=== PATIENT | male | born 1995 | race Caucasian/White ===

== ENCOUNTER 2018-07-24 10:30 | Emergency (ER) | payer BC, OTHER, SELFPAY ==
[2018-07-24] MEDS ORDERED: KETOROLAC 30 MG/ML VIAL IM ONE (10:58)
[2018-07-24] MEDS ORDERED: ORPHENADRINE CITRATE 60MG/2ML VIAL IM ONE (11:10)
--- NOTE | 2018-07-24 11:11 | Emergency Department Record ---
History of Present Illness - General Chief complaint: Pain Stated complaint: R SHOULDER PAIN Time Seen by Provider: 07/24/18 10:53 Source: Patient Mode of Arrival: Ambulatory Limitations: No limitations - History of Present Illness Initial comments: pt has been having pain in his r shoulder for a few days. he does a lot of heavy lifting on his job Complaint: Extremity pain Onset/Timin -: Days(s) Location: Right, Shoulder Severity scale (1-10): >10 Consistency: Constant Improves with: Rest Worsens with: Exertion, Palpation - Related Data Previous Rx's Medication Instructions Recorded Cyclobenzaprine HCl [Flexeril] 10 mg PO TID #14 tablet 07/24/18 Hydrocodone/Acetaminophen [[place] 1 each PO Q6HR #7 tablet 07/24/18 5-325 Tablet] Ibuprofen [Motrin] 800 mg PO Q8H PRN #20 tab 07/24/18 Allergies Allergy/AdvReac Type Severity Reaction Status Date / Time cefaclor [From Ceclor] Allergy RASH Verified 07/24/18 10:44 cephalexin monohydrate Allergy RASH Verified 07/24/18 10:44 [From Keflex] Travel Screening - Travel/Exposure Within Last 30 Days Have you traveled within the last 30 days?: No - Travel/Exposure Within Last Year Have you traveled outside the [place] in the last year?: No - Additonal Travel Details Have you been exposed to anyone with a communicable illness?: No - Travel Symptoms Symptom Screening: None Review of Systems Reviewed: No additional complaints except as noted below Constitutional: Reports: As per HPI. Denies: Chills, Fever, Malaise, Night sweats, Weakness, Weight change Eyes: Reports: As per HPI. Denies: Eye discharge, Eye pain, Photophobia, Vision change ENT: Reports: As per HPI. Denies: Congestion, Dental pain, Ear pain, Epistaxis , Hearing loss, Throat pain Respiratory: Reports: As per HPI. Denies: Cough, Dyspnea, Hemoptysis, Stridor, Wheezes Cardiovascular: Reports: As per HPI. Denies: Arrhythmia, Chest pain, Dyspnea on exertion, Edema, Murmurs, Orthopnea, Palpitations, Paroxysmal nocturnal dyspnea, Rheumatic Fever, Syncope Endocrine: Reports: As per HPI. Denies: Fatigue, Heat or cold intolerance, Polydipsia, Polyuria Gastrointestinal: Reports: As per HPI. Denies: Abdominal pain, Constipation, Diarrhea, Hematemesis, Hematochezia, Melena, Nausea, Vomiting Genitourinary: Reports: As per HPI. Denies: Dysuria, Frequency, Hematuria, Incontinence, Retention, Testicular pain, Testicular mass, Urgency Musculoskeletal: Reports: As per HPI. Denies: Arthralgia, Back pain, Gout, Joint swelling, Myalgia, Neck pain Skin: Reports: As per HPI. Denies: Bruising, Change in color, Change in hair/ nails, Lesions, Pruritus, Rash Neurological: Reports: As per HPI. Denies: Abnormal gait, Confusion, Headache, Numbness, Paresthesias, Seizure, Tingling, Tremors, Vertigo, Weakness Psychiatric: Reports: As per HPI. Denies: Anxiety, Auditory hallucinations, Depression, Homicidal thoughts, Suicidal thoughts, Visual hallucinations Hematological/Lymphatic: Reports: As per HPI. Denies: Anemia, Blood Clots, Easy bleeding, Easy bruising, Swollen glands Past Medical History - SOCIAL HISTORY Smoking Status: Never smoker Alcohol Use: None Drug Use: None - RESPIRATORY Hx Respiratory Disorders: No - CARDIOVASCULAR Hx Cardio Disorders: No - NEURO Hx Neuro Disorders: No - GI Hx GI Disorders: No - Hx Genitourinary Disorders: No - ENDOCRINE Hx Endocrine Disorders: No - MUSCULOSKELETAL Hx Musculoskeletal Disorders: No - PSYCH Hx Psych Problems: No - HEMATOLOGY/ONCOLOGY Hx Hematology/Oncology Disorders: No Family Medical History Any Significant Family History?: Yes Physical Exam - General General Appearance: Alert, Oriented x3, Cooperative, Mild distress - Head Head exam: Normal inspection - Eye Eye exam: Normal appearance, PERRL, EOMI Pupils: Normal accommodation - ENT ENT exam: Normal exam, Mucous membranes moist, Normal external ear exam, Normal orophraynx Ear exam: Normal external inspection. negative: External canal tenderness Nasal Exam: Normal inspection. negative: Discharge, Sinus tenderness Mouth exam: Normal external inspection, Tongue normal Teeth exam: Normal inspection. negative: Dental caries Throat exam: Normal inspection. negative: Tonsillar erythema, Tonsillar exudate - Neck Neck exam: Normal inspection, Full ROM. negative: Tenderness - Respiratory Respiratory exam: Normal lung sounds bilaterally. negative: Respiratory distress - Cardiovascular Cardiovascular Exam: Regular rate, Normal rhythm, Normal heart sounds - GI/Abdominal GI/Abdominal exam: Soft, Normal bowel sounds. negative: Tenderness - Rectal Rectal exam: Deferred - exam: Deferred - Extremities Extremities exam: Normal inspection, Full ROM, Normal capillary refill, Tenderness (along scapular border) - Back Back exam: Reports: Normal inspection, Full ROM. Denies: Muscle spasm, Rash noted, Tenderness - Neurological Neurological exam: Alert, CN II-XII intact, Normal gait, Oriented X3 - Psychiatric Psychiatric exam: Normal affect, Normal mood - Skin Skin exam: Dry, Intact, Normal color, Warm Course Vital Signs 07/24/18 10:45 Temperature 97.7 F Pulse Rate [ 71 Pulse Ox Probe] Respiratory 16 Rate Blood Pressure 143/83 [Left Arm] Pulse Ox 100 Disposition Disposition: Discharge Clinical Impression: Muscle strain of right scapular region Qualifiers: Encounter type: initial encounter Qualified Code(s): S46.911A - Strain of unspecified muscle, fascia and tendon at shoulder and upper arm level, right arm , initial encounter Disposition: Home, Self-Care Condition: (1) Good Instructions: Shoulder Pain (ED) Additional Instructions: follow up with family doctor. return sooner if worse. moist heat. motrin with food. Prescriptions: Hydrocodone/Acetaminophen [[place] 5-325 Tablet] 1 each PO Q6HR #7 tablet Cyclobenzaprine HCl [Flexeril] 10 mg PO TID #14 tablet Ibuprofen [Motrin] 800 mg PO Q8H PRN #20 tab PRN Reason: Pain - Mild To Moderate (1-7) Forms: Patient Portal Access Quality - Quality Measures Quality Measures: N/A - Blood Pressure Screening Does Patient Have Any of the Following: No Blood Pressure Classification: Pre-Hypertensive BP Reading Systolic Measurement: 143 Diastolic Measurement: 83 Screening for High Blood Pressure: < Pre-Hypertensive BP, F/U Documented > [ G8950] Pre-Hypertensive Follow-up Interventions: Follow-up with rescreen every year.
[2018-07-24] MEDS ORDERED: HYDROCODONE/APAP 5/325MG TABLET PO ONE (12:31)
--- NOTE | 2018-07-25 13:55 | RADIOLOGY REPORT ---
EXAM: RIGHT SHOULDER HISTORY: PAIN. TECHNIQUE: Three views of the right shoulder were performed. FINDINGS: No evidence of fracture or dislocation. No lytic or blastic lesion. IMPRESSION: NEGATIVE RIGHT SHOULDER EXAMINATION. JOB NUMBER: [id number] MTDD
== END 2018-07-24 12:57 | disposition home or self-care (01) ==
LOC: ER 10:30
DX: S46.911A Strain of unspecified muscle, fascia and tendon at shoulder and upper arm level, right arm, initial encounter (principal); X50.0XXA Overexertion from strenuous movement or load, initial encounter
CPT/HCPCS: 99283; 96372; 99284; 73030; J1885; J2360

== ENCOUNTER 2019-05-26 12:51 | Emergency (ER) | payer OTHER ==
[2019-05-26] MEDS ORDERED: 0.9 % SODIUM CHLORIDE 1,000 ML BAG IV ONE (13:20)
[2019-05-26] MEDS ORDERED: ONDANSETRON HCL IV 4 MG/2 ML VIAL IVP ONE (13:20)
--- NOTE | 2019-05-26 13:24 | Emergency Department Record ---
History of Present Illness - General Chief complaint: Vomiting Stated complaint: VOMITING,JUNG Time Seen by Provider: 05/26/19 13:08 Source: Patient, Family Mode of Arrival: Ambulatory Limitations: No limitations - History of Present Illness Initial comments: 23 yo male presents with nausea, vomiting and diarrhea. The onset was this morning. No known exposures. He has had "countless" episodes of each. He feels weak and lightheaded with standing. Some headache that comes and goes. No significant abdominal pain. No measured fever. No recent antibiotics. No rash. No blood in the vomiting or diarrhea. No exposures to an farm animals. MD complaint: Diarrhea, Nausea, Vomiting, Other (Weak, light headed) Onset/Timin -: Hour(s) Description of Vomiting: Watery Description of Diarrhea: Water Location: Other Radiation: None Severity: Mild Quality: Cramping Improves with: None Worsens with: None Context: Other Associated Symptoms: Nausea/vomiting, Weakness - Related Data Previous Rx's Medication Instructions Recorded Ondansetron [Zofran Odt] 4 mg PO Q8H #15 tab.rapdis 05/26/19 Allergies Allergy/AdvReac Type Severity Reaction Status Date / Time cefaclor [From Ceclor] Allergy RASH Verified 05/26/19 13:11 cephalexin monohydrate Allergy RASH Verified 05/26/19 13:11 [From Keflex] Travel Screening - Travel/Exposure Within Last 30 Days Have you traveled within the last 30 days?: No - Travel/Exposure Within Last Year Have you traveled outside the [place] in the last year?: No - Additonal Travel Details Have you been exposed to anyone with a communicable illness?: No - Travel Symptoms Symptom Screening: Diarrhea, Vomiting Review of Systems Constitutional: Reports: Malaise, Weakness. Denies: Chills, Fever Eyes: Denies: Eye discharge, Eye pain, Photophobia, Vision change ENT: Denies: Congestion, Throat pain Respiratory: Denies: Cough, Dyspnea, Hemoptysis, Wheezes Cardiovascular: Denies: Chest pain, Syncope Endocrine: Reports: Fatigue. Denies: Polydipsia, Polyuria Gastrointestinal: Reports: Diarrhea, Nausea, Vomiting. Denies: Abdominal pain, Constipation, Hematemesis, Hematochezia, Melena Genitourinary: Denies: Dysuria, Frequency, Hematuria Musculoskeletal: Denies: Arthralgia, Back pain, Myalgia Skin: Denies: Bruising, Change in color, Rash Neurological: Reports: Headache, Weakness (all over). Denies: Confusion, Numbness Psychiatric: Denies: Anxiety, Visual hallucinations Hematological/Lymphatic: Denies: Blood Clots, Easy bleeding Past Medical History - SOCIAL HISTORY Smoking Status: Never smoker - RESPIRATORY Hx Respiratory Disorders: No - CARDIOVASCULAR Hx Cardio Disorders: No - NEURO Hx Neuro Disorders: No - GI Hx GI Disorders: No - Hx Genitourinary Disorders: No - ENDOCRINE Hx Endocrine Disorders: No - MUSCULOSKELETAL Hx Musculoskeletal Disorders: No - PSYCH Hx Psych Problems: No - HEMATOLOGY/ONCOLOGY Hx Hematology/Oncology Disorders: No Family Medical History Any Significant Family History?: No Physical Exam - General General Appearance: Alert, Oriented x3, Cooperative, No acute distress Limitations: No limitations - Head Head exam: Atraumatic, Normal inspection - Eye Eye exam: Normal appearance, PERRL. negative: Conjunctival injection, Scleral icterus - ENT ENT exam: Normal exam, Mucous membranes moist Ear exam: Normal external inspection Nasal Exam: Normal inspection Mouth exam: Normal external inspection - Neck Neck exam: Normal inspection. negative: Lymphadenopathy, Meningismus - Respiratory Respiratory exam: Normal lung sounds bilaterally. negative: Respiratory distress - Cardiovascular Cardiovascular Exam: Regular rate, Normal rhythm, Normal heart sounds - GI/Abdominal GI/Abdominal exam: Soft. negative: Distended, Guarding, Tenderness - Rectal Rectal exam: Deferred - exam: Deferred - Extremities Extremities exam: Normal inspection. negative: Tenderness - Back Back exam: Denies: CVA tenderness (R), CVA tenderness (L) - Neurological Neurological exam: Alert, Oriented X3 - Psychiatric Psychiatric exam: Normal affect, Normal mood - Skin Skin exam: Dry, Intact, Normal color, Warm Course Vital Signs 05/26/19 13:06 Temperature 98.7 F Pulse Rate 79 Respiratory 20 Rate Blood Pressure 127/77 Pulse Ox 98 - Reevaluation(s) Reevaluation #1: The labs were reviewed The CBC demonstrated WBC of 19 The CMP was unremarkable for significant changes. 05/26/19 14:04 05/26/19 15:09 After the fluids, Toradol and Zofran the patient is feeling greatly improved The nausea and headaches are resolved. No diarrhea or vomiting in the department We discussed the results of the tests and questions were answered at the time of discharge. The patient is doing well and is comfortable with DC. DC vitals were reviewed. We discussed at length reasons to immediately return to the ED as well as close follow up. The patient will call the PCP for close follow up of this ED visit to review this visit and the tests performed 05/26/19 15:42 Medical Decision Making - Lab Data Result diagrams: 05/26/19 13:10 05/26/19 13:10 Disposition Disposition: Discharge Clinical Impression: Vomiting and diarrhea Disposition: Home, Self-Care Condition: (1) Good Instructions: Acute Nausea and Vomiting (ED) Additional Instructions: Call your doctor for the next available follow up appointment Review this ER visit and the tests performed with your family doctor Return to the ER for a recheck if worse, any new concerns or questions Take the prescriptions provided as directed Prescriptions: Ondansetron [Zofran Odt] 4 mg PO Q8H #15 tab.rapdis Forms: Patient Portal Access Time of Disposition: 15:10 Quality - Quality Measures Quality Measures: N/A - Blood Pressure Screening Does Patient Have Any of the Following: No Blood Pressure Classification: Normal BP Reading Systolic Measurement: 114 Diastolic Measurement: 59 Screening for High Blood Pressure: < Normal BP, F/U Not Required > [G8783]
[2019-05-26 13:29] LABS: ABSOLUTE NEUTROPHIL COUNT 17.15; HEMATOCRIT 51.6 % (42.0-52.0); HEMOGLOBIN 18.1 gm/dl (14.0-18.0); MEAN CELL VOLUME 84.6 fl (81-97); MEAN CORPUSCULAR HGB CONC 35.1 g/dl (32-36); MEAN PLATELET VOLUME 9.5 fl (7.4-10.4); PLATELET COUNT 425 K/uL (130-400); WHITE BLOOD COUNT W/O DIFF 19.8 K/uL (4.2-12.2)
[2019-05-26 13:31] LABS: MEAN CORPUSCULAR HEMOGLOBIN 29.6 pg (27-33)
[2019-05-26 13:41] LABS: PLATELET ESTIMATE NORMAL (NORMAL)
[2019-05-26 13:47] LABS: BLOOD UREA NITROGEN 14 mg/dL (6-20); EST GLOMERULAR FILTRATION RATE > 60 mL/min; LIPASE 12 U/L (13-60); TOTAL PROTEIN 9.2 g/dL (6.6-8.7)
[2019-05-26 13:49] LABS: GLUCOSE,RANDOM 125 mg/dL (74-109)
[2019-05-26 13:52] LABS: ALB/GLOB RATIO 1.8 (1.1-1.8); ALBUMIN 5.9 g/dL (4.0-5.0); ALKALINE PHOSPHATASE 74 U/L (40-129); ALT/SGPT 17 U/L (<41); AST/SGOT 20 U/L (10.0-50.0)
[2019-05-26] MEDS ORDERED: KETOROLAC 30 MG/ML VIAL IVP ONE (14:11)
== END 2019-05-26 15:31 | disposition home or self-care (01) ==
LOC: ER 12:51
DX: R11.2 Nausea with vomiting, unspecified (principal); R19.7 Diarrhea, unspecified; R53.1 Weakness
CPT/HCPCS: 99284 ×2; 96374; 96375; 96361; 83690; 80053; 85027; J1885; J2405; J7030

== ENCOUNTER 2019-08-13 09:43 | Emergency (ER) | payer OTHER ==
[2019-08-13] MEDS ORDERED: PROPARACAINE HCL OPTH 15ML BTL OPTH ONE (09:45)
--- NOTE | 2019-08-13 10:01 | Emergency Department Record ---
History of Present Illness - General Chief complaint: Eye Problem Stated complaint: EYE PAIN Time Seen by Provider: 08/13/19 09:45 Source: Patient Mode of Arrival: Ambulatory Limitations: No limitations Travel/Exposure to [place] Within 21 Days of Symptoms: No - History of Present Illness Initial comments: 23 yo male presents with right eye irritation this morning. He woke with the symptoms. No known trauma or infection recently. He did work on his truck yesterday but he does not remember specifically getting any debris in the eye. No vision loss. He does not wear glasses or contacts. No fever. No drainage. MD chief complaint: Eye pain, Eye redness -: Hour(s) Onset Description: Awoke with symptoms Location: Right eye Place: Home If Injury: None Eye Symptoms: Burning, Redness Severity: Moderate If Pain, Quality: Aching Consistency: Constant Context: Other Associated Symptoms: Cough Treatments Prior to Arrival: None - Related Data Previous Rx's Medication Instructions Recorded Ondansetron [Zofran Odt] 4 mg PO Q8H #15 tab.rapdis 05/26/19 Allergies Allergy/AdvReac Type Severity Reaction Status Date / Time cefaclor [From Ceclor] Allergy RASH Unverified 07/13/19 10:30 cephalexin monohydrate Allergy RASH Unverified 07/13/19 10:30 [From Keflex] Review of Systems Constitutional: Denies: Chills, Fever, Weakness Eyes: Reports: Eye pain. Denies: Eye discharge, Photophobia, Vision change ENT: Denies: Congestion, Throat pain Respiratory: Reports: Cough. Denies: Dyspnea, Hemoptysis, Wheezes Cardiovascular: Denies: Chest pain, Dyspnea on exertion Endocrine: Denies: Fatigue Gastrointestinal: Denies: Abdominal pain, Diarrhea, Nausea, Vomiting Genitourinary: Denies: Dysuria, Frequency, Hematuria Musculoskeletal: Denies: Arthralgia, Back pain, Myalgia Skin: Denies: Bruising, Change in color, Rash Neurological: Denies: Headache Psychiatric: Denies: Anxiety Hematological/Lymphatic: Denies: Easy bleeding, Easy bruising Past Medical History - SOCIAL HISTORY Smoking Status: Never smoker - RESPIRATORY Hx Respiratory Disorders: No - CARDIOVASCULAR Hx Cardio Disorders: No - NEURO Hx Neuro Disorders: No - GI Hx GI Disorders: No - Hx Genitourinary Disorders: No - ENDOCRINE Hx Endocrine Disorders: No - MUSCULOSKELETAL Hx Musculoskeletal Disorders: No - PSYCH Hx Psych Problems: No - HEMATOLOGY/ONCOLOGY Hx Hematology/Oncology Disorders: No Physical Exam - General General Appearance: Alert, Oriented x3, Cooperative, No acute distress Limitations: No limitations - Head Head exam: Atraumatic, Normal inspection - Eye Eye exam: PERRL, Conjunctival injection (mild laterally), EOMI. negative: Normal appearance, Periorbital swelling, Periorbital tenderness, Scleral icterus Pupils: Normal accommodation. negative: Irregular, Unequal Image of Eyes: 1 - pupil 2 - 2mm linear stain uptake consistent with abrasion - ENT ENT exam: Normal exam Ear exam: Normal external inspection Nasal Exam: Normal inspection Mouth exam: Normal external inspection Teeth exam: Normal inspection - Neck Neck exam: Normal inspection - Neurological Neurological exam: Alert, Normal gait, Oriented X3. negative: Abnormal gait, Altered - Psychiatric Psychiatric exam: Normal affect, Normal mood - Skin Skin exam: Dry, Intact, Normal color, Warm Course - Reevaluation(s) Reevaluation #1: 08/13/19 10:02 Slit Lamp Exam with Stain: AC is clear. No hyphema or abnormal fluid Pupil is regular and normal With the stain there is a linear abrasion with uptake inferior to the pupil about 2mm long No ulcers or dendritic like lesions or other abnormal uptake No FB visualized E-mycin ointment provided with instructions for home care, reasons to return and follow up if needed Disposition Disposition: Discharge Clinical Impression: Corneal abrasion Qualifiers: Encounter type: initial encounter Laterality: right Qualified Code(s): S05.01XA - Injury of conjunctiva and corneal abrasion without foreign body, right eye, initial encounter Disposition: Home, Self-Care Condition: (1) Good Instructions: Corneal Abrasion (ED) Additional Instructions: Apply the Erythromycin ointment every 4 hours Motrin for pain as directed Return if worse, vision changes or any other new symptoms or concerns Return in the next one day if not significantly improved for a recheck Time of Disposition: 10:02 Quality - Quality Measures Quality Measures: N/A - Blood Pressure Screening Does Patient Have Any of the Following: No Systolic Measurement: ~ Screening for High Blood Pressure: < Pre-Hypertensive BP, F/U Documented > [G8950] Pre-Hypertensive Follow-up Interventions: Referral to alternative/primary care provider.
[2019-08-13] MEDS ORDERED: ERYTHROMYCIN OPTH OINT 3.5GM OPTH ONE (10:02)
== END 2019-08-13 10:32 | disposition home or self-care (01) ==
LOC: ER 09:43
DX: S05.01XA Injury of conjunctiva and corneal abrasion without foreign body, right eye, initial encounter (principal); R05 Cough; X58.XXXA Exposure to other specified factors, initial encounter; Y92.009 Unspecified place in unspecified non-institutional (private) residence as the place of occurrence of the external cause
CPT/HCPCS: 99283

== ENCOUNTER 2019-09-26 07:51 | Day surgery (SDC) | payer OTHER ==
[~2019-09-26 07:51] MED LIST: ACETAMINOPHEN 1,000 MG/100 ML BTL IVPB ONE
[2019-09-26] MEDS ORDERED: MIDAZOLAM HCL 2MG/2ML VIAL IV ONE (07:52)
[2019-09-26] MEDS ORDERED: DEXAMETHASONE 4 MG/ML 1ML VIAL IVP ONE (07:52)
[2019-09-26] MEDS ORDERED: NALOXONE 0.4 MG/1 ML VIAL IVP ONE (07:52)
[2019-09-26] MEDS ORDERED: ONDANSETRON HCL IV 4 MG/2 ML VIAL IVP ONE (07:52)
[2019-09-26] MEDS ORDERED: DESFLURANE 240 ML BTL INH ONE (07:52)
[2019-09-26] MEDS ORDERED: LIDOCAINE 2% MDV (20MG/ML) 20ML VIAL IV ONE (07:52)
[2019-09-26] MEDS ORDERED: PROPOFOL 10 MG/ML VIAL IV ONE (07:52)
[2019-09-26] MEDS ORDERED: FENTANYL PF 100MCG/2ML VIAL IV ONE (07:52)
[2019-09-26] MEDS ORDERED: RINGERS SOLUTION,LACTATED 1,000 ML IV ONE ×2 (08:40→11:07)
[2019-09-26] MEDS ORDERED: HYDROCODONE/APAP 5/325MG TABLET PO ONE (11:52)
--- NOTE | 2019-09-26 13:16 | Operative Note ---
DATE OF SURGERY: 09/26/2019 SURGEON: Buster Jenkins D.O. REFERRING PHYSICIAN: Cristiane Camacho N.P. PREOPERATIVE DIAGNOSIS: DE QUERVAIN STENOSING TENOSYNOVITIS OF THE LEFT WRIST. POSTOPERATIVE DIAGNOSIS: DE QUERVAIN STENOSING TENOSYNOVITIS OF THE LEFT WRIST. OPERATION: DE QUERVAIN VEINS FASCIOTOMY OF THE LEFT WRIST USING 3.5 LOUPE MAGNIFICATION. DESCRIPTION: This 23-year-old male was taken to the Operating Room and placed in a supine position on the operating room table. A general anesthetic was administered. The left upper extremity was elevated, prepped with Hibiclens and draped in the usual sterile fashion. It was exsanguinated and the tourniquet was inflated to 200 mmHg. A transverse incision was made 1 cm proximal to the tip of the radial styloid and dissection was carried down through and the skin and subcutaneous tissue on the radial aspect of the wrist. The radial nerve was identified and protected to expose the first dorsal compartment. This was incised from its proximal to its distal margin under direct vision. There was a small slip of the extensor longus tendon which was seen to go through a separate compartment. Marked hyperemia of the tenosynovium overlying the tendon was seen under the first dorsal compartment indicative of significant inflammation there. The tendons themselves appeared to be intact and otherwise normal. The wound was copiously irrigated and the subcutaneous tissue closed with 4-0 Vicryl and the skin with a running subcuticular 4-0 nylon suture. Sterile dressings were applied and the patient was taken to the Recovery Room in satisfactory condition. JOB NUMBER: [id number] [facility]
== END 2019-09-26 12:06 | disposition home or self-care (01) ==
LOC: SUR 07:51
PROVIDERS: ATTEND Orthopaedic Surgery
DX: M65.4 Radial styloid tenosynovitis [de Quervain] (principal)
CPT/HCPCS: J2310; J2405; J7120